=== PATIENT | male | born 1980 | race Caucasian/White ===

== ENCOUNTER 2018-08-17 15:17 | Observation (INO) | payer OTHER ==
[~2018-08-17] VITALS: Ht 162.6 cm; Wt 100.2 kg
[2018-08-17 15:50] LABS: BASOPHILS % (AUTO) 0.6 % (0.0-5.0); HEMATOCRIT 46.8 % (42-54); LYMPHOCYTES % (AUTO) 29.4 % (21.0-51.0); MEAN CORPUSCULAR HEMOGLOBIN 31.5 pg (27.0-33.0); MEAN CORPUSCULAR HGB CONC 35.2 g/dL (32.0-36.0); MEAN CORPUSCULAR VOLUME 89.4 fL (79-99); MONOCYTES % (AUTO) 7.7 % (3.0-13.0); NEUTROPHILS % (AUTO) 60.3 % (40.0-77.0); NUCLEATED RED BLOOD CELLS 0.1 % (0.0-0.19); PLATELET COUNT (AUTO) 267 K/uL (130-400); RED BLOOD CELL COUNT(AUTO) 5.23 MIL/uL (4.50-6.20); RED CELL DISTRIBUTION WIDTH 12.5 % (11.0-15.5); WHITE BLOOD COUNT (AUTO) 7.4 K/uL (4.8-10.8)
[2018-08-17] MEDS ORDERED: SODIUM CHLORIDE 0.9% 1000ML 1,000 ML IV ONE (15:54)
[2018-08-17] MEDS ORDERED: ONDANSETRON HCL 4 MG/2 ML VIAL ONE (15:54)
[2018-08-17 16:13] LABS: CREATININE 1.6 mg/dL (0.5-1.5); POTASSIUM 4.1 mmol/L (3.5-5.1)
[2018-08-17 16:18] LABS: ALBUMIN 3.6 g/dL (3.5-5.0); BILIRUBIN,TOTAL 0.7 mg/dL (0.2-1.0); TOTAL PROTEIN, SERUM 7.6 g/dL (6.0-8.3)
[2018-08-17 16:19] LABS: INR 0.96 (0.85-1.15); PARTIAL THROMBOPLASTIN TIME 27.3 SEC (26.3-35.5); PROTHROMBIN TIME 10.1 SEC (9.6-11.6)
[2018-08-17 16:20] LABS: APPEARANCE,URINE Clear (CLEAR); BILIRUBIN,URINE Negative (NEGATIVE); COLOR,URINE Yellow (YELLOW); GLUCOSE, URINE (UA) Negative (NEGATIVE); KETONES,URINE Negative (NEGATIVE); LEUKOCYTE ESTERASE ,URINE Negative (NEGATIVE); NITRATE,URINE Negative (NEGATIVE); OCCULT BLOOD,URINE Negative (NEGATIVE); PROTEIN,URINE Negative (NEGATIVE); UROBILINOGEN,URINE 0.2 mg/dL (0.2-1.0)
[2018-08-17] MEDS ORDERED: KETOROLAC TROMETHAMINE 15MG/ML ONE (16:25)
[2018-08-17] MEDS ORDERED: MORPHINE SULFATE 2 MG/ML 1ML SYG ONE ×2 (17:54→21:28)
[2018-08-17] MEDS ORDERED: HYDRALAZINE HCL 20 MG/ML VIAL IV PRN (18:15)
[2018-08-17] MEDS ORDERED: LORAZEPAM 2 MG/ML 1 ML VIAL IVP PRN (18:15)
[2018-08-17] MEDS: FAMOTIDINE/PF 20 MG/2 ML VIAL IV SCH (21:00)
[2018-08-17] MEDS ORDERED: FAMOTIDINE/PF 20 MG/2 ML VIAL IV ONE (21:18)
[2018-08-17 22:00] VITALS: BP 126/71
[2018-08-18] VITALS: BP 117/74
[2018-08-18] MEDS: ONDANSETRON HCL 4 MG/2 ML VIAL IVP PRN ×3 (00:26→15:09)
[2018-08-18] MEDS: LACTATED RINGERS 1000ML 1,000 ML IV SCH ×3 (00:27→17:59)
[2018-08-18 04:00] VITALS: BP 118/58
[2018-08-18 04:58] LABS: HEMATOCRIT 42.1 % (42-54); MEAN CORPUSCULAR HEMOGLOBIN 30.6 pg (27.0-33.0); MEAN CORPUSCULAR HGB CONC 34.7 g/dL (32.0-36.0); MEAN CORPUSCULAR VOLUME 88.2 fL (79-99); PLATELET COUNT (AUTO) 253 K/uL (130-400); RED BLOOD CELL COUNT(AUTO) 4.77 MIL/uL (4.50-6.20); RED CELL DISTRIBUTION WIDTH 12.5 % (11.0-15.5); WHITE BLOOD COUNT (AUTO) 6.9 K/uL (4.8-10.8)
[2018-08-18 05:09] LABS: CREATININE 1.5 mg/dL (0.5-1.5)
[2018-08-18 08:00] VITALS: BP 112/72
--- NOTE | 2018-08-18 08:00 | NUR ---
States had one small hard ball Addendum: 08/18/18 at 1743 by KIRK EUBANKS RN RN Amended: Links added.
[2018-08-18] MEDS ORDERED: OMEG1CAP31 PO (08:18)
[2018-08-18] MEDS ORDERED: LISD50CA PO (08:18)
[2018-08-18] MEDS ORDERED: SERT100T12 PO (08:18)
[2018-08-18] MEDS ORDERED: BUPR100T13 PO (08:18)
[2018-08-18] MEDS: FAMOTIDINE/PF 20 MG/2 ML VIAL IV SCH ×2 (08:24→20:11)
--- NOTE | 2018-08-18 10:20 | NUR ---
SHANIQUA Rose met with pt who lives with Sahra Chaudh[phone] in [place]. Pt works, drives and is independent of all ADLS, uses CPAP at night, no in home care services. PCP is Vlad Del Castillo and uses [facility]. denies dc needs, plan is [facility] at pa Addendum: 08/18/18 at 1022 by CORTNEY HOFFMAN Amended: Links added.
[2018-08-18 11:46] VITALS: BP 118/77
[2018-08-18] MEDS: MORPHINE SULFATE 2 MG/ML 1ML SYG IVP PRN ×2 (15:09→20:11)
--- NOTE | 2018-08-18 15:48 | NUR ---
CHART REVIEWED SUGGESTING RD CONSULT IN AM OR PRIOR TO DISCHARGE. CM TO FOLLOW, DCP HOME Addendum: 08/18/18 at 1552 by SAVANNAH WHITAKER RN CM Amended: Links added.
[2018-08-18 16:00] VITALS: BP 112/71
[2018-08-18] MEDS ORDERED: LIDOCAINE HCL-MPF 1% 2ML VIAL IVP PRN (16:30)
[2018-08-18] MEDS ORDERED: POTASSIUM CHLORIDE 20MEQ/100ML 100 ML IV PRN (16:30)
[2018-08-18] MEDS ORDERED: POTASSIUM CHLORIDE 10% ELIXIR 20 MEQ/15 ML UDCUP PO PRN (16:30)
[2018-08-18] MEDS ORDERED: MAGNESIUM 2GM PREMIX 50ML 50 ML IV PRN (16:30)
[2018-08-18] MEDS ORDERED: POTASSIUM CHLORIDE 20 MEQ ERTAB PO PRN (16:30)
--- NOTE | 2018-08-18 16:34 | NUR ---
Pt. up ambulating in the hallway with his sister.
--- NOTE | 2018-08-18 19:02 | NUR ---
Pt. requesting his NGT be removed, c/o it's hurting the back of his throat when drinking water, paged Dr. Oquendo. Endorsed to dain Esquivel RN.
[2018-08-18 19:18] VITALS: BP 116/72
--- NOTE | 2018-08-18 20:45 | NUR ---
EMMETT PAGED TO INFORM MD THAT PATIENT LEFT THE FACILITY AMA. PENDING CALL BACK.
--- NOTE | 2018-08-18 22:15 | NUR ---
PATIENT REMOVED NG TUBE PATIENT REMOVED NG TUBE WITHOUT ASSISTANCE ON HIS OWN. STATES HE IS VERY UNCOMFORTABLE AND DID NOT FEEL THE NEED FOR THE TUBE ANYMORE. THE NG TUBE WAS IN THE TRASH CAN. ASSESSED THE CATHETER, TIP INTACT. PATIENT HAS NO COMPLAINTS OF PAIN, N/V OR DISCOMFORTS AT THIS TIME. PATIENT REQUESTING FOOD, REMINDED PATIENT THAT HE IS NPO AT THIS TIME.
--- NOTE | 2018-08-18 22:20 | NUR ---
AMA PATIENT REQUESTED TO LEAVE THE HOSPITAL AGAINST MEDICAL ADVISE. PATIENT ADVISED OF THE CONSEQUENCES INVOLVED WITH LEAVING THE HOSPITAL AND THE BENEFITS OF STAYING IN THE HOSPITAL UNTIL A PHYSICIAN SAFELY DISCHARGES THE PATIENT. PATIENT INSIST ON LEAVING AND SIGNING THE AMA FORM. PATIENT STATES HE IS GOING TO A HOSPITAL IN [place] TO HAVE SURGERY PERFORMED THERE.
--- NOTE | 2018-08-18 22:50 | NUR ---
RETURNED PAGE INFORMED MARLENE OF PATIENT LEAVING AMA. PHYSICIAN RESPONED WITH "BYE.".
== END 2018-08-18 22:20 | disposition home or self-care (01) ==
LOC: EDH 15:17 → EDHIP 17:33 → 3AH 21:00
PROVIDERS: ADMIT Internal Medicine Pulmonary Disease; ATTEND Internal Medicine Pulmonary Disease
DX: R11.2 Nausea with vomiting, unspecified (principal); G47.33 Obstructive sleep apnea (adult) (pediatric); F41.9 Anxiety disorder, unspecified; F32.9 Major depressive disorder, single episode, unspecified; Z83.3 Family history of diabetes mellitus; Z79.899 Other long term (current) drug therapy; Z79.01 Long term (current) use of anticoagulants
CPT/HCPCS: 36415 ×2; 71045; 74021; 74176; 80048; 80053; 81003; 82150; 82550; 83690; 84484; 85025; 85027; 85610; 85730; 93005; 96361; 96374; 96375; 96376; 99284; G0378 ×29; J1885; J2060; J2405 ×4; J3490 ×3; J7030; J7120 ×2